=== PATIENT | male | born 2000 | race Caucasian/White ===

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

== ENCOUNTER 2020-05-15 12:16 | Emergency (ER) | payer BC, OTHER ==
[2020-05-15] MEDS ORDERED: ISOVUE-370 76% 100ML VIAL As Ordered ONE (12:52)
[2020-05-15] MEDS ORDERED: NS 1,000 ML IV ONE (13:00)
[2020-05-15 13:04] LABS: HEMATOCRIT 49.1 % (42.0-52.0); HEMOGLOBIN 16.3 g/dl (13.5-17.5); MEAN CORPUSCULAR HEMOGLOBIN 30.6 pg (27.0-33.0); MEAN CORPUSCULAR HGB CONC 33.2 g/dl (32.0-36.5); MEAN CORPUSCULAR VOLUME 92.1 fl (80.0-96.0); PLATELET COUNT, AUTOMATED 186 10^3/uL (150-450); RED BLOOD COUNT 5.33 10^6/uL (4.30-6.10); WHITE BLOOD COUNT 8.4 10^3/uL (4.0-10.0)
[2020-05-15 13:30] LABS: ALBUMIN 4.4 GM/DL (3.2-5.2); ALT/SGPT 28 U/L (12-78); BILIRUBIN,DIRECT 0.3 MG/DL (0.0-0.2); CK-MB VALUE MASS 3.2 NG/ML (<3.6); CPK CREATINE PHOSPHOKINASE 803 U/L (39-308); LIPASE 126 U/L (73-393); TOTAL PROTEIN 7.5 GM/DL (6.4-8.2); TROPONIN I < 0.02 NG/ML (< 0.10)
--- NOTE | 2020-05-15 13:37 | REP ---
INDICATION: trauma. COMPARISON: None TECHNIQUE: Helical axial images using 2 mm increments and reconstructed in both sagittal and coronal planes FINDINGS: Vertebral body height and alignment is within normal limits. The disc spaces are symmetric and well maintained. The facet joints are well aligned bilaterally. There is no acute fracture. There is no abnormal paraspinal soft tissue swelling. IMPRESSION: Negative exam <Electronically signed by Justin Escalante > 05/15/20 [id number]
--- NOTE | 2020-05-15 13:38 | REP ---
INDICATION: trauma. COMPARISON: None. TECHNIQUE: 4.5 mm contiguous transaxial sections were obtained from the skull base to the cerebral convexities with thin cuts through the posterior fossa without the administration of intravenous contrast. FINDINGS: The ventricles and sulci are consistent with the patient's age. There are no extra-axial fluid collections. There is no mass effect. The deep cerebral white matter is consistent with the patient's age. The orbital and petrous structures, cerebellopontine angles, and posterior fossa are unremarkable. The sella turcica, cavernous, and paracavernous structures are essentially unremarkable. The visualized portions of the paranasal sinuses and mastoid air cells are clear. Images of the skull base show no gross abnormality. IMPRESSION: Essentially unremarkable CT examination of the brain. <Electronically signed by Justin Escalante > 05/15/20 [id number]
--- NOTE | 2020-05-15 13:44 | REP ---
INDICATION: trauma. COMPARISON: None TECHNIQUE: Helical CT scanning of chest, abdomen, and pelvis after 100 cc of Isovue 370 intravenously FINDINGS: There is a small amount of soft tissue density in the anterior mediastinum likely residual thymic tissue. There is no adenopathy. There are no pleural or pericardial effusions. Evaluation of the lung kinney shows them to be clear without abnormal nodules, masses, or opacities. The liver, gallbladder, spleen, pancreas, adrenal glands, and kidneys are within normal limits. The abdominal aorta and para-aortic regions are within normal limits. There is no free fluid or free air. There is no mass or adenopathy. Bone window technique throughout the entire exam shows the osseous structures to be within normal limits. IMPRESSION: No acute disease involving the chest, abdomen, or pelvis. <Electronically signed by Justin Escalante > 05/15/20 [id number]
[2020-05-15] MEDS ORDERED: KETOROLAC 30 MG/ML 1ML VIAL IV ONE (14:30)
[2020-05-15] MEDS ORDERED: ONDA4TAB6 PO (15:39)
[2020-05-15] MEDS ORDERED: KETO10TAB PO (15:39)
[2020-05-15 15:51] VITALS: BP 122/88
== END 2020-05-15 16:20 | disposition home or self-care (01) ==
LOC: M ED 12:16
DX: S06.0X0A Concussion without loss of consciousness, initial encounter (principal); M54.2 Cervicalgia; M79.602 Pain in left arm; R07.89 Other chest pain; V86.05XA Driver of 3- or 4- wheeled all-terrain vehicle (ATV) injured in traffic accident, initial encounter; F17.290 Nicotine dependence, other tobacco product, uncomplicated
CPT/HCPCS: 70450; 71260; 72125; 74177; 80047; 80076; 81001; 82550; 82553; 83605; 83690; 84484; 85027; 86850; 86900; 86901; 93041; 94760; 96361; 96374; 99285; J1885; Q9967